=== PATIENT | female | born 1985 | race Caucasian/White ===

== ENCOUNTER 2018-06-11 18:14 | Emergency (ER) | payer SELFPAY ==
[~2018-06-11] VITALS: Ht 157.5 cm; Wt 63.0 kg
[2018-06-11 20:17] LABS: CLARITY URINE CLEAR (CLEAR); COLOR URINE DARK YELLOW (YELLOW); KETONES URINE NEGATIVE (NEGATIVE); LEUKOCYTE ESTERASE URINE 3+ (NEGATIVE); NITRITE URINE POSITIVE (NEGATIVE); OCCULT BLOOD URINE 3+ (NEGATIVE); PROTEIN URINE NEGATIVE (NEGATIVE); SPECIFIC GRAVITY URINE 1.003 (1.005-1.030)
[2018-06-11] MEDS ORDERED: KETOROLAC 30MG/ML VIAL IV STA (20:27)
[2018-06-11] MEDS ORDERED: SODIUM CHLORIDE 0.9% 1,000 ML IV ONE (20:27)
[2018-06-11 20:54] LABS: BASOPHILS % 0.3 % (0.0-2.0); EOSINOPHILS % 1.5 % (0.0-5.0); HEMATOCRIT. 40.4 % (36.0-48.0); HEMOGLOBIN. 13.4 g/dL (12.0-16.0); LYMPHOCYTES % 25.8 % (20.0-50.0); MEAN CORPUSCULAR HEMOGLOBIN 31.2 pg (28.0-32.0); MEAN PLATELET VOLUME 8.3 fl (7.4-10.4); NEUTROPHILS % 67.4 % (40.0-76.0); PLATELET 333 x1000/uL (130-400); RED CELL DISTRIBUTION WIDTH 12.8 % (11.6-14.6)
[2018-06-11 20:58] LABS: CHLORIDE 105 mEq/L (98-107)
[2018-06-11] MEDS ORDERED: CEFTRIAXONE 1 G PREMIX 50 ML IV ONE (21:15)
[2018-06-11 23:57] VITALS: BP 110/90
== END 2018-06-11 23:58 | disposition home or self-care (01) ==
LOC: ER 18:14
DX: N39.0 Urinary tract infection, site not specified (principal); R03.0 Elevated blood-pressure reading, without diagnosis of hypertension
CPT/HCPCS: 36415; 80048; 81003; 81025; 85025; 87086; 96374; 96375; 99283; J0696; J1885; J7030; Z7610

== ENCOUNTER 2019-05-17 17:53 | Emergency (ER) | payer MEDICAID ==
[~2019-05-17] VITALS: Ht 152.4 cm; Wt 62.0 kg
[2019-05-17 18:05] VITALS: BP 120/75
[2019-05-17 20:15] LABS: BASOPHILS % 0.3 % (0.0-2.0); EOSINOPHILS % 1.6 % (0.0-5.0); HEMATOCRIT. 41.5 % (36.0-48.0); LYMPHOCYTES % 34.5 % (20.0-50.0); MEAN CORPUSCULAR HEMOGLOBIN 31.6 pg (28.0-32.0); MEAN CORPUSCULAR VOLUME 93.3 fL (81.0-99.0); MEAN PLATELET VOLUME 8.6 fl (7.4-10.4); MONOCYTES % 5.4 % (2.0-8.0); NEUTROPHILS % 58.2 % (40.0-76.0); PLATELET 318 x1000/uL (130-400); RED BLOOD CELL COUNT 4.45 mill/uL (4.2-5.4); RED CELL DISTRIBUTION WIDTH 12.6 % (11.6-14.6)
[2019-05-17 20:16] LABS: CHLORIDE 104 mEq/L (98-107)
[2019-05-17 20:40] LABS: B-HCG QUANTITATIVE 2101 mIU/mL (<3)
== END 2019-05-17 21:09 | disposition home or self-care (01) ==
LOC: ER 17:53
DX: O20.9 Hemorrhage in early pregnancy, unspecified (principal); Z3A.01 Less than 8 weeks gestation of pregnancy
CPT/HCPCS: 36415; 76801; 80053; 84702; 85025; 86850; 86900; 99284

== ENCOUNTER 2019-10-03 16:33 | Emergency (ER) | payer MEDICAID ==
[~2019-10-03] VITALS: Ht 152.4 cm; Wt 64.0 kg
[2019-10-03] MEDS ORDERED: HYDROCODONE/ACETAMINOPHEN 5/325MG TABLET PO ONE (18:15)
[2019-10-03 18:29] VITALS: BP 112/76
== END 2019-10-03 18:29 | disposition home or self-care (01) ==
LOC: ER 16:33
DX: K64.4 Residual hemorrhoidal skin tags (principal)
CPT/HCPCS: 99282